=== PATIENT | male | born 1960 | race Caucasian/White ===

== ENCOUNTER 2018-04-13 08:42 | Emergency (ER) | payer MEDICAID ==
[~2018-04-13] VITALS: Ht 175.3 cm; Wt 86.0 kg
[2018-04-13 08:48] VITALS: BP 116/112
[2018-04-13] MEDS ORDERED: LIDOcaine 1.5% w/epinephrine 1:200,000 5ml ampul IJ ONE (09:05)
[2018-04-13] MEDS ORDERED: sulfamethoxazole/trimethoprim DS (800/160mg) tablet PO ONE (09:05)
[2018-04-13] MEDS ORDERED: SULF1TAB49 PO (10:36)
[2018-04-13] MEDS ORDERED: HYDR-565 PO (10:37)
== END 2018-04-13 10:46 | disposition home or self-care (01) ==
LOC: ER 08:43
DX: L02.01 Cutaneous abscess of face (principal); F17.200 Nicotine dependence, unspecified, uncomplicated; Z88.5 Allergy status to narcotic agent; Z88.6 Allergy status to analgesic agent; Z88.8 Allergy status to other drugs, medicaments and biological substances; Z79.899 Other long term (current) drug therapy
CPT/HCPCS: 10060; 99283; J3490; 99284